=== PATIENT | male | born 1950 | race Two or more races ===

== ENCOUNTER 2018-12-25 23:31 | Emergency (ER) | payer MEDICARE, MEDICAID ==
[~2018-12-25] VITALS: Ht 182.9 cm; Wt 75.7 kg
[2018-12-26] MEDS ORDERED: EPINEPHrine HCL 1 MG/1 ML AMP SC ONE (03:30)
[2018-12-26] MEDS ORDERED: methylPREDNISolone SOD SUCC 125 MG/2 ML VL IM ONE (03:30)
[2018-12-26] MEDS ORDERED: FAMOTIDINE 20 MG TAB PO ONE (03:30)
[2018-12-26] MEDS ORDERED: diphenhdrAMINE HCL 25 MG CAP PO ONE (03:30)
[2018-12-26 03:32] VITALS: BP 150/85
== END 2018-12-26 05:00 | disposition home or self-care (01) ==
LOC: ER 23:39
DX: T78.40XA Allergy, unspecified, initial encounter (principal)
CPT/HCPCS: 96372; 99283; J0171; J2930

== ENCOUNTER 2020-03-05 03:01 | Emergency (ER) | payer MEDICARE, MEDICAID ==
[~2020-03-05] VITALS: Ht 182.9 cm; Wt 77.1 kg
[2020-03-05 03:29] VITALS: BP 155/85
[2020-03-05] MEDS ORDERED: HYDROcodone-ACET 5/325MG TAB PO ONE (04:45)
== END 2020-03-05 05:01 | disposition home or self-care (01) ==
LOC: ER 03:01
DX: B02.9 Zoster without complications (principal)

== ENCOUNTER 2020-03-14 08:58 | Emergency (ER) | payer MEDICARE, MEDICAID ==
[~2020-03-14] VITALS: Ht 182.9 cm; Wt 77.1 kg
[2020-03-14 09:29] VITALS: BP 132/75
== END 2020-03-14 10:05 | disposition home or self-care (01) ==
LOC: ER 08:58
DX: B02.9 Zoster without complications (principal)

== ENCOUNTER 2022-12-23 11:52 | Inpatient (IN) | payer MEDICARE, MEDICAID ==
[~2022-12-23] VITALS: Ht 185.4 cm; Wt 75.0 kg
[2022-12-23 13:35] LABS: Basophils # (auto) 0 10 ^3/uL (0-0.2); Basophils % (auto) 0.2 % (0.0-2.0); Eosinophils # (auto) 0.1 10 ^3/uL (0-0.8); Hemoglobin 14.3 g/dL (13.5-17.5); Lymphocytes # (auto) 2.6 10 ^3/uL (0.4-5.4)
[2022-12-23 13:38] LABS: Eosinophils % (auto) 1.7 % (0.0-7.0); Hematocrit 42.8 % (41.0-53.0); Lymphocytes % (auto) 34.1 % (10.0-50.0); Mean Corpuscular Hemoglobin 33.8 pg (28.0-32.0); Mean Corpuscular Hgb Conc. 33.3 g/dL (32.0-36.0); Mean Corpuscular Volume 101.4 fL (80.0-100.0); Monocytes # (auto) 1.3 10 ^3/uL (0-1.3); Monocytes % (auto) 17.7 % (0.0-12.0); Neutrophils # (auto) 3.5 10 ^3/uL (1.6-8.6); Neutrophils % (auto) 46.3 % (37.0-80.0); Nucleated Red Blood Cells % 0.1 %; Red Blood Cells 4.22 10^6/uL (4.5-5.90); Red Cell Distribution Width 12.9 % (11.8-14.3); White Blood Cell 7.6 10^3/uL (4.4-10.8)
[2022-12-23 13:46] LABS: Alanine Aminotransferase 23 U/L (7-40); Albumin 4.2 g/dL (3.2-4.8); Alkaline Phosphatase 106 U/L (46-116); Anion Gap 4.8 (5-15); Aspartate Aminotransferase 16 U/L (13-40); BUN/Creatinine Ratio 14.1 (10.0-20.0); Blood Urea Nitrogen 14 mg/dL (9-23); Carbon Dioxide 28.2 mmol/L (20-30); Chloride 105 mmol/L (98-107); Glucose 107 mg/dL (74-106); Potassium 4.1 mmol/L (3.5-5.1); Sodium 138 mmol/L (136-145)
[2022-12-23 13:47] LABS: Bilirubin, Total 0.4 mg/dL (0.2-1.0); Total Protein 7.1 g/dL (5.7-8.2)
[2022-12-23 16:53] LABS: Urine Bacteria NONE SEEN /hpf (None Seen); Urine Blood Negative /uL (Negative); Urine Clarity Clear (Clear); Urine Color Yellow (Yellow); Urine Mucus FEW (None Seen); Urine Protein, UAD TRACE (Negative); Urine Specific Gravity 1.022 (1.001-1.035); Urine Urobilinogen Normal (Negative); Urine WBC 1 /hpf (0 - 3)
[2022-12-23] MEDS ORDERED: IBUPROFEN 600 MG TAB PO PRN (19:15)
[2022-12-23] MEDS ORDERED: SODIUM CHLORIDE 0.9% 1,000 ML IV ONE (19:15)
[2022-12-23] MEDS ORDERED: ACETAMINOPHEN 325 MG TAB PO PRN (19:15)
[2022-12-23] MEDS ORDERED: HYDROcodone-ACET 5/325MG TAB PO PRN (19:15)
[2022-12-24] VITALS (8 sets, daily range): BP systolic 126–140; BP diastolic 67–73; PULSE 61–83; RESP 16–18; TEMP 97.4–98; O2SAT 96–98
[2022-12-24 10:16] LABS: Basophils # (auto) 0 10 ^3/uL (0-0.2); Basophils % (auto) 0.2 % (0.0-2.0); Eosinophils # (auto) 0.1 10 ^3/uL (0-0.8); Hemoglobin 14.3 g/dL (13.5-17.5); Monocytes # (auto) 1.2 10 ^3/uL (0-1.3); Nucleated Red Blood Cells % 0.1 %; Red Cell Distribution Width 13.2 % (11.8-14.3)
[2022-12-24 10:19] LABS: Eosinophils % (auto) 1.9 % (0.0-7.0); Hematocrit 42.3 % (41.0-53.0); Lymphocytes # (auto) 2.8 10 ^3/uL (0.4-5.4); Lymphocytes % (auto) 37.4 % (10.0-50.0); Mean Corpuscular Hemoglobin 33.9 pg (28.0-32.0); Mean Corpuscular Hgb Conc. 33.9 g/dL (32.0-36.0); Mean Corpuscular Volume 100.2 fL (80.0-100.0); Monocytes % (auto) 16.3 % (0.0-12.0); Neutrophils # (auto) 3.3 10 ^3/uL (1.6-8.6); Neutrophils % (auto) 44.2 % (37.0-80.0); Red Blood Cells 4.22 10^6/uL (4.5-5.90); White Blood Cell 7.6 10^3/uL (4.4-10.8)
[2022-12-24] MEDS ORDERED: LORazepam 2MG/ML-1ML VIAL IV PRN (10:45)
[2022-12-24] MEDS ORDERED: THIAMINE 100mg/ml INJ (200mg/2ml VIAL) IV SCH (11:00)
[2022-12-24 11:11] LABS: Alanine Aminotransferase 23 U/L (7-40); Albumin 4.1 g/dL (3.2-4.8); Alkaline Phosphatase 100 U/L (46-116); Anion Gap 6.9 (5-15); Aspartate Aminotransferase 15 U/L (13-40); BUN/Creatinine Ratio 12.5 (10.0-20.0); Blood Urea Nitrogen 11 mg/dL (9-23); Calcium 9.1 mg/dL (8.5-10.1); Carbon Dioxide 25.1 mmol/L (20-30); Chloride 107 mmol/L (98-107); Glucose 137 mg/dL (74-106); LDL Cholesterol 127 mg/dL (< 100); Potassium 3.9 mmol/L (3.5-5.1); Sodium 139 mmol/L (136-145); Triglycerides 210 mg/dL (< 150)
[2022-12-24 11:12] LABS: Cholesterol 187 mg/dL (< 200); HDL Cholesterol 42 mg/dL (40-59); Total Protein 7.1 g/dL (5.7-8.2)
[2022-12-24 11:15] LABS: Bilirubin, Total 0.6 mg/dL (0.2-1.0)
[2022-12-24 12:46] LABS: Folate (Folic Acid) 15.15 ng/mL (>5.38)
[2022-12-24] MEDS ORDERED: LORazepam 0.5 MG TAB PO PRN (16:45)
[2022-12-25 05:05] VITALS: BP 121/64; PULSE 63; RESP 18; TEMP 97.7; O2SAT 96
[2022-12-25 06:17] LABS: Hematocrit 41.2 % (41.0-53.0); Hemoglobin 13.9 g/dL (13.5-17.5); Mean Corpuscular Hgb Conc. 33.7 g/dL (32.0-36.0); Red Blood Cells 4.08 10^6/uL (4.5-5.90); Red Cell Distribution Width 13.3 % (11.8-14.3); White Blood Cell 6.6 10^3/uL (4.4-10.8)
[2022-12-25 06:36] LABS: Anion Gap 5.6 (5-15); Carbon Dioxide 26.4 mmol/L (20-30); Chloride 106 mmol/L (98-107); Potassium 4.1 mmol/L (3.5-5.1); Sodium 138 mmol/L (136-145)
[2022-12-25 06:37] LABS: Calcium 9.4 mg/dL (8.7-10.4)
[2022-12-25 06:42] LABS: BUN/Creatinine Ratio 20.7 (10.0-20.0); Blood Urea Nitrogen 17 mg/dL (9-23); Glucose 91 mg/dL (74-106)
[2022-12-25 06:50] LABS: Band Neutrophils % (manual) 0; Basophils % (manual) 0 (0.0-2.0); Blast Cells 0; Metamyelocytes % 0; Myelocytes % 0; Promyelocytes % 0; Reactive Lymphocytes 0
[2022-12-25 09:00] VITALS: BP 121/58; PULSE 57; RESP 20; TEMP 98; O2SAT 98
[2022-12-25 10:08] LABS: Eosinophils % (manual) 2 (0-7); Lymphocytes % (manual) 42 (10.0-50.0); Monocytes % (manual) 15 (0-12); Platelet Estimate Adequate
[2022-12-25] MEDS ORDERED: MULT-351 PO (11:33)
[2022-12-25 11:50] VITALS: BP 121/58; PULSE 57; RESP 20; TEMP 98; O2SAT 98
[2022-12-25] MEDS ORDERED: FOLIC ACID 1 MG, MULTIPLE VITAMIN 10 ML, MAGNESIUM SULF SDV 50% 8 MEQ, THIAMINE INJ 100... INJ SCH ×5 (12:00)
[2022-12-25 13:00] VITALS: BP 123/69; PULSE 69; RESP 20; TEMP 98.3; O2SAT 98
== END 2022-12-25 15:30 | disposition home or self-care (01) | DRG 641 ==
LOC: ER 11:52 → OVERFLOW 19:11 → WEST WING 12-24 10:08
PROVIDERS: ADMIT Nurse Practitioner Family; ATTEND Internal Medicine
DX: E86.0 Dehydration (principal); B69.0 Cysticercosis of central nervous system; F10.10 Alcohol abuse, uncomplicated; G93.89 Other specified disorders of brain; D53.9 Nutritional anemia, unspecified; I10 Essential (primary) hypertension
CPT/HCPCS: 36415; 70450; 70551; 80048; 80053; 80061; 81001; 82607; 82746; 82962; 83036; 83735; 84484; 85007; 85025; 85027; 93005; 93306; 93886; G0378

== ENCOUNTER 2024-05-07 20:16 | Emergency (ER) | payer MEDICARE, MEDICAID ==
[~2024-05-07] VITALS: Ht 182.9 cm; Wt 78.2 kg
[~2024-05-07 20:16] MED LIST: MULT-351 PO
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
[2024-05-07] MEDS ORDERED: IBUP-1455 PO (21:56)
[2024-05-07] MEDS ORDERED: ACET500T58 PO (21:56)
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
[2024-05-07 22:53] VITALS: BP 145/83; PULSE 87; RESP 18; TEMP 98.3; O2SAT 96
[2024-05-07] MEDS: KETOROLAC TROMETH 60MG/2ML VIAL IM ONE (22:55)
== END 2024-05-07 23:57 | disposition home or self-care (01) ==
LOC: ER 20:16
DX: S16.1XXA Strain of muscle, fascia and tendon at neck level, initial encounter (principal); S09.90XA Unspecified injury of head, initial encounter; V43.62XA Car passenger injured in collision with other type car in traffic accident, initial encounter; Y93.89 Activity, other specified; Y92.410 Unspecified street and highway as the place of occurrence of the external cause; Y99.8 Other external cause status
CPT/HCPCS: 70450; 72125; 96372; 99285; J1885